=== PATIENT | female | born 1950 | race Caucasian/White ===

== ENCOUNTER 2024-04-09 09:15 | Outpatient (REF) | payer MEDICARE, OTHER, SELFPAY ==
--- NOTE | ~2024-04-09 | XR_ITS ---
EXAMINATION: XR KNEE, LEFT CLINICAL INFORMATION: Tibial spine fracture COMPARISON: CT 03/29/2024 TECHNIQUE: AP and lateral views of the left knee. FINDINGS: Persistent moderate joint effusion. The nondisplaced fracture of the medial tibial spine is barely perceptible. Prominent vascular calcifications. No new abnormality. XR/XR knee LT 3V IMPRESSION: The nondisplaced fracture of the medial tibial spine is barely perceptible. Persistent but improved moderate joint effusion.
== END 2024-04-09 09:16 | disposition home or self-care (01) ==
LOC: HO.HOSX 09:15
DX: S82.115A Nondisplaced fracture of left tibial spine, initial encounter for closed fracture (principal)
CPT/HCPCS: 73562; 99202

== ENCOUNTER 2024-04-09 09:47 | Outpatient (AMB) | payer MEDICARE, OTHER, SELFPAY ==
--- NOTE | 2024-04-09 09:56 | A.OFFVIS_ITS ---
Vital Signs 04/09/24 10:17 Height 4 ft 8 in Weight 123 lb BMI 27.6 Intake Visit Reasons: FC- LT knee tibial spine fx Intake Note: Hermelinda is a 74 year old female who presents today for a evaluation of her left knee injury, DOI 04/01/24. Patient reports she tripped over a rug while at the [facility] and fel at home landing on her left knee. Patient reports her pain is mainl y on the - . she is taking tylenol for her pain which is helping. Her swelling has improved sincek the injury. Denies any numbness or tingling. She has been Partial weight bearing with a walker. Allergies sulfamethoxazole [From Bactrim] Allergy (Verified 04/09/24 10:15) Rash trimethoprim [From Bactrim] Allergy (Verified 04/09/24 10:15) Rash morphine Adverse Reaction (Verified 04/09/24 10:15) mood changes Penicillins Adverse Reaction (Verified 04/09/24 10:15) Anaphylaxis HPI HPI FC- LT knee tibial spine fx: Details: Patient is a 74-year-old female on Xarelto for paroxysmal atrial fibrillation who presents for evaluation of left tibial spine fracture, date of injury 03/28/2024. Patient reports that she tripped over an outdoor area rug, fell and struck her left knee, and immediately began to experience pain and swelling. Patient reports that her edema significantly increased over the next few hours, as well as significant ecchymosis. Patient was evaluated at [facility] in [place], where x-rays and CT scan were performed and she was diagnosed with a nondisplaced tibial spine fracture with significant hemarthrosis. Today, the patient reports that she is feeling much better, and is not in any pain, ?she just knows that it is there?. Patient has been toe-touch weight-bearing with a walker since date of injury. She has been taking 500 mg of Tylenol per day at bedtime, and feels that this has given her adequate pain control. The patient a lso reports that her edema and ecchymosis have improved significantly since date of injury. The patient inquires about her potential course of treatment, and states that she does not want to go into a cast. Patient also inquires if she has been going up stairs correctly. Review of Systems Const All systems reviewed & are unremarkable except as noted in HPI and below Physical Exam Vital Signs: BMI result Body Mass Index 27.6 Extrem Other: On inspection, mild to moderate edema, particularly suprapatellar, noted No ecchymosis noted No erythema or evidence of infection No lacerations or abrasions noted Patient is nontender to palpation of the knee While in her wheelchair, patient is able to bend to approximately 20 degrees without any difficulty Sensation intact Cap refill brisk Office Procedures Fracture Care Details: Left tibial spine fracture Fracture Billing Code: Fracture Billing Code Results Reviewed Results Reviewed: X-rays obtained in the office today and independently reviewed by me, Ernesto Neves PA-C, demonstrate nondisplaced fracture of the left tibial spine. Assessment & Plan Assessment & Plan (1) Closed fracture of left tibial spine: Code(s): S82.112A - Displaced fracture of left tibial spine, initial encounter for closed fracture Category: Medical Qualifiers: Encounter type: initial encounter Fracture alignment: nondisplaced Qualified Code(s): S82.115A - Nondisplaced fracture of left tibial spine, initial encounter for closed fracture Plan 1. Left tibial spine fracture Date of injury 03/28/2024 At this time, surgery is not indicated in this patient Patient will be managed conservatively Patient is educated about her injury and the typical treatment course Patient is removed from her knee immobilizer at this time due to concerns with stiffness, and is placed into a hinged knee brace Patient is told she can be partially weight-bearing, and told she can gently flex and extend at the knee to prevent stiffness, but is advised to avoid any hyperextension or hyperflexion Patient is advised to continue use of her walker for at least the next 2 weeks Patient is advised to continue her current method of going up stairs, initiating with her healthy leg while going up and initiating with the injured leg while going down Patient is amenable to this plan Patient will follow-up in 2 weeks with repeat x-rays for reassessment and [id number] check, sooner with any acute concerns Orders: Orders XR knee LT 3V Today M25.562 - Pain in left knee Coding Level of Care Code New Pt Level 3 (23111) Diagnoses Closed nondisplaced fracture of spine of left tibia, initial encounter S82.115A Encounter type: initial encounter Fracture alignment: nondisplaced CPT Codes Fracture Care - Fracture Billing Code: Fracture Billing Code ([id number])
[2024-04-09 10:17] VITALS: BMI 27.6
== END 2024-04-09 10:51 | disposition home or self-care (01) ==
PROVIDERS: PCP Internal Medicine
DX: S82.115A Nondisplaced fracture of left tibial spine, initial encounter for closed fracture (principal)
CPT/HCPCS: 99203

== ENCOUNTER 2024-04-22 08:32 | Outpatient (REF) | payer MEDICARE, OTHER, SELFPAY ==
--- NOTE | ~2024-04-22 | XR_ITS ---
EXAMINATION: XR KNEE, LEFT CLINICAL INFORMATION: Left knee pain. Tibial spine fracture. COMPARISON: Radiographs 04/09/2024. TECHNIQUE: AP standing view both knees. Lateral and sunrise views of the left knee. FINDINGS: Previously demonstrated fracture of the medial tibial spine of the left knee is barely perceptible. There is mild medial compartment osteoarthritis of both knees, as well as mild patellofemoral compartment osteoarthritis of the left knee with a small joint effusion. XR/XR knee LT 3V IMPRESSION: Previously demonstrated fracture of the medial tibial spine of the left knee is barely perceptible. There is a small joint effusion.
== END 2024-04-22 08:33 | disposition home or self-care (01) ==
LOC: HO.HOSX 08:32
DX: M25.562 Pain in left knee (principal); S82.115A Nondisplaced fracture of left tibial spine, initial encounter for closed fracture
CPT/HCPCS: 73562; 99212

== ENCOUNTER 2024-04-22 12:33 | Outpatient (AMB) | payer MEDICARE, OTHER, SELFPAY ==
--- NOTE | 2024-04-22 13:08 | A.OFFVIS_ITS ---
Intake Visit Reasons: OV LT knee tibial spine fx w/ xray Intake Note: Hermelinda is a 74 year old female who presents today for a evaluation of her left tibial spine fx, DOI 04/01/24. Patient reports she is doing well. She mentions that she get some discomfort when she is sleeping and when she wears her brace sometimes. Allergies sulfamethoxazole [From Bactrim] Allergy (Verified 04/22/24 13:10) Rash trimethoprim [From Bactrim] Allergy (Verified 04/22/24 13:10) Rash morphine Adverse Reaction (Verified 04/22/24 13:10) mood changes Penicillins Adverse Reaction (Verified 04/22/24 13:10) Anaphylaxis HPI HPI OV LT knee tibial spine fx w/ xray: Details: Patient is a 74-year-old female who presents for follow-up evaluation of left knee tibial spine fracture, date of injury 04/01/2024. Today, the patient reports that she is feeling well, and she is not experiencing any pain in her left knee. The patient reports that her only source of discomfort is when the brace starts to slide down and she starts to feel some discomfort in the tibial tubercle and anterior cohen. Patient reports that she has been partially weight- bearing since previous evaluation, and has been ambulating with a walker. Patient inquires if she can switch to a cane if she continues with partial weight-bearing. No other acute complaints or concerns at this time. Review of Systems Const All systems reviewed & are unremarkable except as noted in HPI and below Physical Exam Extrem Other: Left knee normal to inspection No edema, erythema, ecchymosis noted No lacerations or open areas Patient reports very mild tenderness to palpation over the tibial tubercle, but she reports that this is due to irritation from brace No other tenderness to palpation noted Patient is able to extend to 10 degrees without difficulty, and is also able to flex to 90 degrees without difficulty Distal sensation intact Capillary refill brisk Results Reviewed Results Reviewed: X-rays obtained in the office today and independently reviewed by me, Ernesto Neves PA-C, demonstrate nondisplaced fracture of the left tibial spine, largely unchanged from previous x-rays.. Assessment & Plan Assessment & Plan (1) Closed fracture of left tibial spine: Code(s): S82.112A - Displaced fracture of left tibial spine, initial encounter for closed fracture Category: Medical Qualifiers: Encounter type: initial encounter Fracture alignment: nondisplaced Qualified Code(s): S82.115A - Nondisplaced fracture of left tibial spine, initial encounter for closed fracture Plan 1. Left tibial plateau fracture Patient is recovering well from her injury Patient is educated about the typical recovery course Patient is informed that she can switch to use of a cane , but she will still require an assistive device while walking, as she is still only partial weight bearing Patient is informed that if she gets tired, or begins to experience any additional discomfort, she should switch back to using a walker and call our office Patient is advised that she should continue use of the brace whenever ambulating or weightbearing Patient is also advised to continue avoiding hyperflexion or hyperextension, but is encouraged to continue with gentle ROM. Patient is amenable to this plan Patient will follow up in 4 weeks with repeat x rays, sooner with any acute concerns Orders: Orders XR knee LT 3V 04/22/24 M25.562 - Pain in left knee Coding Level of Care Code Est Pt Level 3 (21902) Global (65095) Diagnoses Closed nondisplaced fracture of spine of left tibia, initial encounter S82.115A Encounter type: initial encounter Fracture alignment: nondisplaced
== END 2024-04-22 13:38 | disposition home or self-care (01) ==
PROVIDERS: PCP Internal Medicine
DX: S82.115A Nondisplaced fracture of left tibial spine, initial encounter for closed fracture (principal)
CPT/HCPCS: 99213

== ENCOUNTER 2024-05-27 11:03 | Outpatient (REF) | payer MEDICARE, OTHER, SELFPAY ==
--- NOTE | ~2024-05-27 | XR_ITS ---
EXAMINATION: XR KNEE, RIGHT XR KNEE, LEFT CLINICAL INFORMATION: Right and left knee pain. COMPARISON: Most recent left knee radiographs dated 03/23/2024. TECHNIQUE: AP standing view of the right and left knee as well as lateral and sunrise views of the left knee. FINDINGS: Right Knee: Mild medial compartment joint space narrowing. Tiny medial and lateral compartment marginal osteophytes. No acute fracture or dislocation. No concerning lytic or blastic osseous lesion. Atherosclerotic calcifications. Findings are similar when compared to the prior examination. Left Knee: Small tricompartmental marginal osteophytes, slightly progressed. No acute fracture or dislocation. No concerning lytic or blastic osseous lesion. No significant joint effusion. Superior patellar enthesophytes. XR/XR knee RT 1V IMPRESSION: RIGHT KNEE: Mild medial and lateral compartment osteoarthritis, unchanged. LEFT KNEE: Mild tricompartmental osteoarthritis, slightly progressed. Electronically signed by: Baljit Caban MD 06/11/2024 08:56 PM EDT
--- NOTE | ~2024-05-27 | XR_ITS ---
EXAMINATION: XR KNEE, RIGHT XR KNEE, LEFT CLINICAL INFORMATION: Right and left knee pain. COMPARISON: Most recent left knee radiographs dated 03/23/2024. TECHNIQUE: AP standing view of the right and left knee as well as lateral and sunrise views of the left knee. FINDINGS: Right Knee: Mild medial compartment joint space narrowing. Tiny medial and lateral compartment marginal osteophytes. No acute fracture or dislocation. No concerning lytic or blastic osseous lesion. Atherosclerotic calcifications. Findings are similar when compared to the prior examination. Left Knee: Small tricompartmental marginal osteophytes, slightly progressed. No acute fracture or dislocation. No concerning lytic or blastic osseous lesion. No significant joint effusion. Superior patellar enthesophytes. XR/XR knee LT 3V IMPRESSION: RIGHT KNEE: Mild medial and lateral compartment osteoarthritis, unchanged. LEFT KNEE: Mild tricompartmental osteoarthritis, slightly progressed. Electronically signed by: Baljit Caban MD 06/11/2024 08:56 PM EDT
== END 2024-05-27 11:04 | disposition home or self-care (01) ==
LOC: HO.HOSX 11:03
DX: M17.0 Bilateral primary osteoarthritis of knee (principal)
CPT/HCPCS: 73560; 73562; 99212

== ENCOUNTER 2024-05-27 12:19 | Outpatient (AMB) | payer MEDICARE, OTHER, SELFPAY ==
--- NOTE | 2024-05-27 12:20 | MHC.OFFVIS ---
Vital Signs 05/27/24 12:21 Height 4 ft 8 in Weight 123 lb BMI 27.6 Intake Visit Reasons: OV LT knee tibial spine fx w/ xray Intake Note: Hermelinda is a 74 year old female who presents today for a follow up of her right tibial plateau fracture DOI 04/01/24. She was given a brace to wear with activities. Allergies sulfamethoxazole [From Bactrim] Allergy (Verified 05/27/24 12:23) Rash trimethoprim [From Bactrim] Allergy (Verified 05/27/24 12:23) Rash morphine Adverse Reaction (Verified 05/27/24 12:23) mood changes Penicillins Adverse Reaction (Verified 05/27/24 12:23) Anaphylaxis HPI HPI OV LT knee tibial spine fx w/ xray: Details: Hermelinda is a 74 year old female who presents today for a follow up of her right tibial plateau fracture DOI 04/01/24. She was given a brace to wear with activities. Patient reports that she is doing well with no concerns. Patient reports that she gets ?tired? in her left leg after a long day of walking, but does not experience any pain. Patient reports that she is not experiencing any erythema or edema of the left knee at this time. Patient reports that her only source of discomfort is from the hinged knee brace she was provided, as she states that the hinges digs into the sides of her knee. No other acute complaints or concerns at this time Physical Exam Vital Signs: BMI result Body Mass Index 27.6 Extrem Other: On inspection, there is no visible deformity of the patient's left knee No edema, erythema, ecchymosis noted No lacerations, abrasions, open areas noted No evidence of infection Patient reports no tenderness to palpation about the medial or lateral joint lines, posterior knee and popliteal fossa, medial and lateral aspects of the knee, patella and parapatellar area, or tibial tuberosity Patient is able to extend the knee to 0 degrees without difficulty Patient is able to flex the knee to approximately 110 degrees without difficulty Distal sensation intact Capillary refill brisk Results Reviewed Results Reviewed: X-rays obtained in the office today and independently reviewed by , Ernesto Neves PA-C, demonstrate nondisplaced fracture of the left tibial spine with evidence of interval bony healing. Assessment & Plan Assessment & Plan (1) Closed fracture of left tibial spine: Code(s): S82.112A - Displaced fracture of left tibial spine, initial encounter for closed fracture Category: Medical Qualifiers: Encounter type: initial encounter Fracture alignment: nondisplaced Qualified Code(s): S82.115A - Nondisplaced fracture of left tibial spine, initial encounter for closed fracture Plan 1. Nondisplaced left tibial spine fracture Date of injury 04/01/2024 Patient appears to be recovering well from her injury Patient is educated about the typical recovery course Patient is informed that she can come out of the brace at this time, and can weight bear has tolerated Patient can also return to full range of motion as tolerated Patient no longer requires use of a cane or walker, but patient states that she was only using the cane as an ?pop? and had not really been putting any weight on it prior to evaluation. Patient is amenable to this plan Patient will follow-up as needed with any acute concerns Orders: Orders XR knee LT 3V Today M25.562 - Pain in left knee XR knee RT 1V Today M25.561 - Pain in right knee Coding Level of Care Code Global (77863) Diagnoses Closed nondisplaced fracture of spine of left tibia, initial encounter S82.115A Encounter type: initial encounter Fracture alignment: nondisplaced
[2024-05-27 12:21] VITALS: BMI 27.6
== END 2024-05-27 12:37 | disposition home or self-care (01) ==
LOC: HO.HOS 12:19
PROVIDERS: PCP Internal Medicine
DX: S82.115A Nondisplaced fracture of left tibial spine, initial encounter for closed fracture (principal)
CPT/HCPCS: 99213